=== PATIENT | female | born 1960 | race Caucasian/White ===

== ENCOUNTER 2019-02-25 09:22 | Emergency (ER) | payer OTHER ==
[~2019-02-25] VITALS: Ht 165.1 cm; Wt 70.3 kg
[2019-02-25 09:30] VITALS: BP 131/81
[2019-02-25] MEDS ORDERED: BACTRIM DS TAB1 EACH PO (09:41)
[2019-02-25] MEDS ORDERED: KEFLEX500 M1 PO (09:41)
[2019-02-25] MEDS ORDERED: NORCO 5-325 TA1 EACH PO (09:41)
== END 2019-02-25 10:06 | disposition home or self-care (01) ==
LOC: M.ERS 09:22
DX: L03.211 Cellulitis of face (principal)